=== PATIENT | male | born 1965 | race Caucasian/White ===

== ENCOUNTER 2017-06-23 12:38 | Emergency (ER) | payer OTHER, SELFPAY ==
[2017-06-23 12:44] VITALS: BP 149/82; PULSE 87; RESP 14; TEMP 36.2; O2SAT 100; BMI 19.9
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
== END 2017-06-23 14:42 | disposition home or self-care (01) ==
PROVIDERS: Emergency Provider Internal Medicine; Family Provider Specialist; PCP Specialist
DX: S29.011A Strain of muscle and tendon of front wall of thorax, initial encounter (principal); X58.XXXA Exposure to other specified factors, initial encounter
CPT/HCPCS: 99282

== ENCOUNTER 2018-07-12 10:35 | Emergency (ER) | payer OTHER, SELFPAY ==
[2018-07-12 10:44] VITALS: BP 122/64; PULSE 97; RESP 18; TEMP 37.2; O2SAT 98; BMI 19.3
--- NOTE | 2018-07-12 10:55 | ED.EXTPRO ---
HPI - Extremity Problem General Chief complaint: Extremity Problem,Nontraumatic Stated complaint: RT HAND SWELLING Time Seen by Provider: 07/12/18 10:54 Source: patient Mode of arrival: ambulatory Limitations: no limitations History of Present Illness HPI Narrative: 53-year-old gentleman comes emergency department with complaint of swelling of his right hand. Patient states he started noticing about 5:00 a.m. yesterday in the evening. Patient states that the swelling extended up to his fingers by tender 11:00 a.m. slightly into the fingers. He put an ice pack on it and went to bed. When he woke up this morning the swelling had decreased a little bit but is still present on the back of the hand. States not really tender. The skin feels a little bit tight. He can move his hand fully without any issues. He does not recall any trauma, no injuries. He states he has not had any cuts or scrapes. 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 Patient has been on some amoxicillin for about 3 days for a dental infection. He denies any numbness or tingling. He states he takes medication including amlodipine and lisinopril for hypertension. No atrial fibrillation. He did have any long distance travel, he has not fallen asleep on the arm for a extended amount of time. Patient quit smoking couple years ago. Denies illicit. They have cats at home but they are Trevizo and he does not interact with them. He denies any fevers or chills. No chest pain or shortness of breath or swelling in the rest of the arm. Related Data Home Medications Medication Instructions Recorded Confirmed amlodipine 5 mg PO DAILY 06/23/17 06/23/17 aspirin 81 mg PO DAILY 06/23/17 06/23/17 lisinopril 40 mg PO DAILY 06/23/17 06/23/17 Previous Rx's Medication Instructions Recorded clindamycin HCl 300 mg PO Q6H 5 Days #20 cap 07/12/18 Allergies Allergy/AdvReac Type Severity Reaction Status Date / Time No Known Drug Allergies Allergy Verified 06/23/17 12:48 Review of Systems Review of Systems ROS Unobtainable: All systems reviewed & are unremarkable except as noted in HPI and below Constitutional Denies chills, Denies fever(s), Denies malaise and Denies weakness Cardiovascular Denies chest pain and Denies dyspnea Respiratory Denies dyspnea Musculoskeletal Reports as per HPI, Denies limited range of motion, Denies muscle weakness, Denies numbness, Denies radiating pain into limb, Denies tingling and Reports other (Swelling dorsum of hand) Integumentary/Breasts Reports as per HPI, Denies non-healing lesions, Reports erythema, Reports skin swelling, Denies sores, Denies unusual bruising and Denies wounds Neurologic Denies numbness, Denies tingling, Denies paresthesias and Denies weakness [facility] Medical History HTN (hypertension) (Chronic) Lumbar disc disease (Chronic) 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 HEENT: Head normocephalic, atraumatic, EOMI, pupils reactive, face symmetric, moist mucous membranes NECK: Supple, full range of motion CARDIOVASCULAR: Regular rate and rhythm without murmurs, rubs or gallops. RESPIRATORY: Breath sounds equal bilaterally, no wheezes rales or rhonchi. ABDOMEN: Soft, nontender. Normoactive bowel sounds all 4 quadrants. No guarding or rebound, rigidity, no mass : No CVA tenderness EXTREMITIES: Normal range of motion, no clubbing. Patient has edema of the dorsum of the hand extending from just distal of the wrist up to in the medical carpal joint and the fingers. Patient has full range of motion, he is nontender to palpation throughout the entire hand and wrist. There is some mild erythema. It is mildly warm to touch. Patient has cap refill less than 2 seconds in all 5 fingers. He has 2+ radial pulse. He has normal sensation throughout. He has no swelling of his upper extremity. No bruising, no sores or wounds appreciated. Neurovascularly intact NEUROLOGICAL: Cranial nerves II through XII grossly intact. Moving all extremities SKIN: Warm, dry, no petechiae, no rashes or lesions except as noted above. Initial Vital Signs Initial Vital Signs: Vital Signs Temperature 98.9 F 07/12/18 10:44 Pulse Rate 97 H 07/12/18 10:44 Respiratory Rate 18 07/12/18 10:44 Blood Pressure 122/64 07/12/18 10:44 Pulse Oximetry 98 07/12/18 10:44 Course Orders Ordered: ED Orders 07/12/18 11:03 XR hand RT min 3V Stat Vital Signs - 8 hr 07/12/18 10:44 07/12/18 11:27 Temperature 98.9 F Pulse Rate 97 H 84 Respiratory Rate 18 18 Blood Pressure 122/64 119/71 Pulse Oximetry 98 99 MDM - Extremity (Nontraumatic) Imaging Data X-ray right hand: Radiologist's impression: [address] [address] XRay Report Signed Patient: Álvaro Smith LMR#: [id number] : 1965Acct:[id number] Age/Sex: 53 / MDate of Service: 07/12/18 Loc: ED Accession Number: [id number] Procedure: XR hand RT min 3V Ordering Provider: Elena Seth D.O. PROCEDURE: XR HAND RT MIN 3V INDICATIONS: swelling, redness hand, no trauma, minimal pain TECHNIQUE: 3 views of the hand(s) acquired. COMPARISON: None. FINDINGS: Bones: No fractures or dislocations. Carpal bones are normally aligned. No suspicious bony lesions. Mild degenerative changes of the basal joint of the thumb are noted. Additional areas of mild degenerative change involving the right hand are also present. Soft tissues: No suspicious soft tissue calcifications. No radiopaque foreign bodies are appreciated. Soft tissue swelling on the dorsal aspect of the hand is present. IMPRESSION: 1. No acute fractures of the right hand. 2. Mild degenerative changes of the right hand. 3. Soft tissue swelling along the dorsal aspect of the hand. Dictated by: John Lima M.D. on 07/12/2018 at 10:12 Approved by: John Lima M.D. on 07/12/2018 at 10:13 MDM Narrative Medical decision making narrative: X-ray does not show any gas, no fracture or other concerning changes for serious infection. Discussed with patient has been taking amoxicillin but he was on that before the symptoms started. I even though it is starting to improve per the patient I would go ahead and start him on a new antibiotic. Plan for clindamycin, patient is to return to the emergency department if worsening symptoms. Discharge Plan Departure Patient Disposition: Home Clinical Impression: Cellulitis of hand, right Discharge Date/Time: 07/12/18 11:28 Interventions: ED Discharge Assessment Last Done: 07/12/18 11:27 Instructions: DI for Cellulitis -- Adult Activity Restrictions/Additional Instructions: Follow-up with primary care or return for recheck in the next 3-5 days if you are having no improvement/resolution of symptoms. Take antibiotics until they are completely gone. Start them today. Return to the emergency department for fevers greater than 100.4 F, rapidly worsening swelling, redness that is spreading, new pain in your hand or extremity, new chest pain, shortness of breath, passing out, if you are unable to flexor straight your fingers, new weakness, numbness or other new or concerning symptoms. Prescriptions: New clindamycin HCl 300 mg capsule 300 mg PO Q6H 5 Days Qty: 20 RF: 0 No Action amlodipine 5 mg Tablet 5 mg PO DAILY RF: 0 aspirin 81 mg Tablet,Chewable 81 mg PO DAILY RF: 0 lisinopril 40 mg Tablet 40 mg PO DAILY RF: 0 Referrals: Rafael Sy MD [Primary Care Provider] - Stand Alone Forms: Work Release Note
--- NOTE | 2018-07-12 11:03 | DI.RAD.S_ITS ---
PROCEDURE: XR HAND RT MIN 3V INDICATIONS: swelling, redness hand, no trauma, minimal pain TECHNIQUE: 3 views of the hand(s) acquired. COMPARISON: None. FINDINGS: Bones: No fractures or dislocations. Carpal bones are normally aligned. No suspicious bony lesions. Mild degenerative changes of the basal joint of the thumb are noted. Additional areas of mild degenerative change involving the right hand are also present. Soft tissues: No suspicious soft tissue calcifications. No radiopaque foreign bodies are appreciated. Soft tissue swelling on the dorsal aspect of the hand is present. IMPRESSION: 1. No acute fractures of the right hand. 2. Mild degenerative changes of the right hand. 3. Soft tissue swelling along the dorsal aspect of the hand. Dictated by: John Lima M.D. on 07/12/2018 at 10:12 Approved by: John Lima M.D. on 07/12/2018 at 10:13
--- NOTE | 2018-07-12 11:10 | ED_ITS ---
HPI - Extremity Problem General Chief complaint: Extremity Problem,Nontraumatic Stated complaint: RT HAND SWELLING Time Seen by Provider: 07/12/18 10:54 Source: patient Mode of arrival: ambulatory Limitations: no limitations History of Present Illness HPI Narrative: 53-year-old gentleman comes emergency department with complaint of swelling of his right hand. Patient states he started noticing about 5:00 a.m. yesterday in the evening. Patient states that the swelling extended up to his fingers by tender 11:00 a.m. slightly into the fingers. He put an ice pack on it and went to bed. When he woke up this morning the swelling had decreased a little bit but is still present on the back of the hand. States not really tender. The skin feels a little bit tight. He can move his hand fully without any issues. He does not recall any trauma, no injuries. He states he has not had any cuts or scrapes. 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 Patient has been on some amoxicillin for about 3 days for a dental infection. He denies any numbness or tingling. He states he takes medication including amlodipine and lisinopril for hypertension. No atrial fibrillation. He did have any long distance travel, he has not fallen asleep on the arm for a extended amount of time. Patient quit smoking couple years ago. Denies illicit. They have cats at home but they are Trevizo and he does not interact with them. He denies any fevers or chills. No chest pain or shortness of breath or swelling in the rest of the arm. Related Data Home Medications Medication Instructions Recorded Confirmed amlodipine 5 mg PO DAILY 06/23/17 06/23/17 aspirin 81 mg PO DAILY 06/23/17 06/23/17 lisinopril 40 mg PO DAILY 06/23/17 06/23/17 Previous Rx's Medication Instructions Recorded clindamycin HCl 300 mg PO Q6H 5 Days #20 cap 07/12/18 Allergies Allergy/AdvReac Type Severity Reaction Status Date / Time No Known Drug Allergies Allergy Verified 06/23/17 12:48 Review of Systems Review of Systems ROS Unobtainable: All systems reviewed & are unremarkable except as noted in HPI and below Constitutional Denies chills, Denies fever(s), Denies malaise and Denies weakness Cardiovascular Denies chest pain and Denies dyspnea Respiratory Denies dyspnea Musculoskeletal Reports as per HPI, Denies limited range of motion, Denies muscle weakness, Denies numbness, Denies radiating pain into limb, Denies tingling and Reports other (Swelling dorsum of hand) Integumentary/Breasts Reports as per HPI, Denies non-healing lesions, Reports erythema, Reports skin swelling, Denies sores, Denies unusual bruising and Denies wounds Neurologic Denies numbness, Denies tingling, Denies paresthesias and Denies weakness [facility] Medical History HTN (hypertension) (Chronic) Lumbar disc disease (Chronic) 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 HEENT: Head normocephalic, atraumatic, EOMI, pupils reactive, face symmetric, moist mucous membranes NECK: Supple, full range of motion CARDIOVASCULAR: Regular rate and rhythm without murmurs, rubs or gallops. RESPIRATORY: Breath sounds equal bilaterally, no wheezes rales or rhonchi. ABDOMEN: Soft, nontender. Normoactive bowel sounds all 4 quadrants. No guarding or rebound, rigidity, no mass : No CVA tenderness EXTREMITIES: Normal range of motion, no clubbing. Patient has edema of the dorsum of the hand extending from just distal of the wrist up to in the medical carpal joint and the fingers. Patient has full range of motion, he is nontender to palpation throughout the entire hand and wrist. There is some mild erythema. It is mildly warm to touch. Patient has cap refill less than 2 seconds in all 5 fingers. He has 2+ radial pulse. He has normal sensation throughout. He has no swelling of his upper extremity. No bruising, no sores or wounds appreciated. Neurovascularly intact NEUROLOGICAL: Cranial nerves II through XII grossly intact. Moving all extremities SKIN: Warm, dry, no petechiae, no rashes or lesions except as noted above. Initial Vital Signs Initial Vital Signs: Vital Signs Temperature 98.9 F 07/12/18 10:44 Pulse Rate 97 H 07/12/18 10:44 Respiratory Rate 18 07/12/18 10:44 Blood Pressure 122/64 07/12/18 10:44 Pulse Oximetry 98 07/12/18 10:44 Course Orders Ordered: ED Orders 07/12/18 11:03 XR hand RT min 3V Stat Vital Signs - 8 hr 07/12/18 10:44 07/12/18 11:27 Temperature 98.9 F Pulse Rate 97 H 84 Respiratory Rate 18 18 Blood Pressure 122/64 119/71 Pulse Oximetry 98 99 MDM - Extremity (Nontraumatic) Imaging Data X-ray right hand: Radiologist's impression: [address] [address] XRay Report Signed Patient: Álvaro Smith LMR#: [id number] : 1965Acct:[id number] Age/Sex: 53 / MDate of Service: 07/12/18 Loc: ED Accession Number: [id number] Procedure: XR hand RT min 3V Ordering Provider: Elena Seth D.O. PROCEDURE: XR HAND RT MIN 3V INDICATIONS: swelling, redness hand, no trauma, minimal pain TECHNIQUE: 3 views of the hand(s) acquired. COMPARISON: None. FINDINGS: Bones: No fractures or dislocations. Carpal bones are normally aligned. No suspicious bony lesions. Mild degenerative changes of the basal joint of the thumb are noted. Additional areas of mild degenerative change involving the right hand are also present. Soft tissues: No suspicious soft tissue calcifications. No radiopaque foreign bodies are appreciated. Soft tissue swelling on the dorsal aspect of the hand is present. IMPRESSION: 1. No acute fractures of the right hand. 2. Mild degenerative changes of the right hand. 3. Soft tissue swelling along the dorsal aspect of the hand. Dictated by: John Lima M.D. on 07/12/2018 at 10:12 Approved by: John Lima M.D. on 07/12/2018 at 10:13 MDM Narrative Medical decision making narrative: X-ray does not show any gas, no fracture or other concerning changes for serious infection. Discussed with patient has been taking amoxicillin but he was on that before the symptoms started. I even though it is starting to improve per the patient I would go ahead and start him on a new antibiotic. Plan for clindamycin, patient is to return to the emergency department if worsening symptoms. Discharge Plan Departure Patient Disposition: Home Clinical Impression: Cellulitis of hand, right Discharge Date/Time: 07/12/18 11:28 Interventions: ED Discharge Assessment Last Done: 07/12/18 11:27 Instructions: DI for Cellulitis -- Adult Activity Restrictions/Additional Instructions: Follow-up with primary care or return for recheck in the next 3-5 days if you are having no improvement/resolution of symptoms. Take antibiotics until they are completely gone. Start them today. Return to the emergency department for fevers greater than 100.4 F, rapidly worsening swelling, redness that is spreading, new pain in your hand or extremity, new chest pain, shortness of breath, passing out, if you are unable to flexor straight your fingers, new weakness, numbness or other new or concerning symptoms. Prescriptions: New clindamycin HCl 300 mg capsule 300 mg PO Q6H 5 Days Qty: 20 RF: 0 No Action amlodipine 5 mg Tablet 5 mg PO DAILY RF: 0 aspirin 81 mg Tablet,Chewable 81 mg PO DAILY RF: 0 lisinopril 40 mg Tablet 40 mg PO DAILY RF: 0 Referrals: Rafael Sy MD [Primary Care Provider] - Stand Alone Forms: Work Release Note
[2018-07-12 11:27] VITALS: BP 119/71; PULSE 84; RESP 18; O2SAT 99
== END 2018-07-12 11:28 | disposition home or self-care (01) ==
LOC: ED 11:24
PROVIDERS: Emergency Provider Emergency Medicine; PCP Specialist
DX: L03.113 Cellulitis of right upper limb (principal)
CPT/HCPCS: 73130; 99282; 99283

== ENCOUNTER 2018-12-03 11:08 | Emergency (ER) | payer OTHER, SELFPAY ==
[2018-12-03 11:14] VITALS: BP 170/80; PULSE 74; RESP 15; TEMP 36.7; O2SAT 98
--- NOTE | 2018-12-03 11:22 | DI.RAD.S_ITS ---
PROCEDURE: XR CHEST 1V INDICATIONS: Eval for pneumonia TECHNIQUE: One view of the chest was acquired. COMPARISON: [facility], , CHEST 2 VIEW, 02/23/2013, 9:50. FINDINGS: Surgical changes and devices: None. Lungs and pleura: Lungs are clear. No pleural effusions or pneumothorax. Mediastinum: Mediastinal contours appear normal. Heart size is normal. Bones and chest wall: No suspicious bony lesions. Overlying soft tissues appear unremarkable. IMPRESSION: No acute cardiopulmonary pathology. Dictated by: Russel Carreon M.D. on 12/03/2018 at 11:41 Approved by: Russel Carreon M.D. on 12/03/2018 at 11:42
--- NOTE | 2018-12-03 11:26 | ED.GENADULT ---
HPI - General Adult General Chief complaint: Shortness of Breath/Dyspnea Stated complaint: difficulty breathing,raspy Time Seen by Provider: 12/03/18 11:22 Source: patient Mode of arrival: Ambulatory Limitations: no limitations History of Present Illness HPI narrative: 53-year-old male here for evaluation of chest congestion and also sinus congestion. He states that his symptoms started yesterday. Has been coughing. Has not tried anything for symptoms prior to arrival. No fevers. States that his nose has been congested over the past couple mornings. He feels like things to get better as the day goes on. No chest pain. Attempted to contact his primary provider but could get in to see him until the end of the month. Related Data Home Medications Medication Instructions Recorded Confirmed amlodipine 5 mg PO DAILY 06/23/17 12/03/18 aspirin 81 mg PO DAILY 06/23/17 06/23/17 lisinopril 40 mg PO DAILY 06/23/17 12/03/18 Previous Rx's Medication Instructions Recorded albuterol sulfate 2 puff INHALATION Q4-6H PRN #18 12/03/18 gram Allergies Allergy/AdvReac Type Severity Reaction Status Date / Time No Known Drug Allergies Allergy Verified 12/03/18 11:14 Review of Systems Constitutional Constitutional: Reports fatigue, Denies fever(s) and Denies headache(s) ENT Ears, Nose, Mouth, and Throat: Denies headache(s), Denies disequilibrium, Denies tinnitus, Denies sinus pain, Reports sinus pressure, Denies sore throat and Denies throat swelling Cardiovascular Cardiovascular: Denies chest pain, Denies dyspnea and Denies dyspnea on exertion Respiratory Respiratory: Reports chest congestion, Reports cough, Denies dyspnea and Denies dyspnea on exertion Gastrointestinal Gastrointestinal: Denies abdominal pain, Denies melena and Denies change in stool character Musculoskeletal Musculoskeletal: Denies myalgias and Denies arthralgias Integumentary/Breasts Skin/Breast: Denies lesions and Denies rash Neurologic Neurologic: Denies behavioral changes, Denies headache(s) and Denies disequilibrium Psychiatric Psychiatric: Denies behavioral changes Endocrine Endocrine: Reports fatigue Hematologic/Lymphatic Hematologic/Lymphatic: Denies easy bleeding and Denies easy bruising Allergic/Immunologic Allergic/Immunologic: Denies throat swelling Patient History Medical History HTN (hypertension) (Chronic) Lumbar disc disease (Chronic) 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) Sciatica (Resolved) Social History Smoking Status: Former smoker alcohol intake: current substance use type: marijuana alcohol intake frequency: 3 or more drinks per day Substance Use Type: does not use Exam Initial Vital Signs Initial Vital Signs: Vital Signs Temperature 98.1 F 12/03/18 11:14 Pulse Rate 74 12/03/18 11:14 Respiratory Rate 15 12/03/18 11:14 Blood Pressure 170/80 H 12/03/18 11:14 Pulse Oximetry 98 12/03/18 11:14 Const General: cooperative and comfortable Orientation: alert, awake and oriented x3 HENMT Head: normal to inspection and normocephalic Throat: posterior oropharynx normal Resp Effort & Inspection: normal respiratory effort Auscultation: clear to auscultation bilaterally Cardio Rate: regular rate Skin Lesions: no lesions Rashes: no rashes Neuro General: alert and awake Cognition: normal cognition Speech: speech normal Motor: muscle tone normal throughout Extrem General: normal to inspection and capillary refill normal Psych Appearance: grossly normal and well kempt Course Orders Ordered: ED Orders 12/03/18 11:22 XR chest 1V Stat EKG-12 Lead Stat Vital Signs Vital signs: Vital Signs - 8 hr 12/03/18 11:14 Temperature 98.1 F Pulse Rate 74 Respiratory Rate 15 Blood Pressure 170/80 H Pulse Oximetry 98 Medical Decision Making Imaging Data Chest x-ray: Radiologist's impression: [address] [address] XRay Report Signed Patient: Álvaro Smith LMR#: [id number] : 1965Acct:[id number] Age/Sex: 53 / MDate of Service: 12/03/18 Loc: ED Accession Number: [id number] Procedure: XR chest 1V Ordering Provider: Artie Jean D.O. PROCEDURE: XR CHEST 1V INDICATIONS: Eval for pneumonia TECHNIQUE: One view of the chest was acquired. COMPARISON: [facility], , CHEST 2 VIEW, 02/23/2013, 9:50. FINDINGS: Surgical changes and devices: None. Lungs and pleura: Lungs are clear. No pleural effusions or pneumothorax. Mediastinum: Mediastinal contours appear normal. Heart size is normal. Bones and chest wall: No suspicious bony lesions. Overlying soft tissues appear unremarkable. IMPRESSION: No acute cardiopulmonary pathology. Dictated by: Russel Carreon M.D. on 12/03/2018 at 11:41 Approved by: Russel Carreon M.D. on 12/03/2018 at 11:42 ECG Data Attestation: I personally reviewed and interpreted this ECG as follows: Prior ECG tracings: not available for review Interpretation: Sinus rhythm Normal axis Normal QRS Normal QTC No ST T wave changes MDM Narrative Medical decision making narrative: Chest x-ray is negative, no indication for antibiotics, patient is afebrile, low suspicion for flu. I do suspect that this is upper respiratory potentially bronchitis however has no abnormal lung findings. We did discuss the use of decongestants. Was sent home with albuterol as well. Patient was given return precautions and follow-up instructions. He expressed understanding and agreement plan. Discharge Plan Departure Patient Disposition: Home Clinical Impression: Chest congestion Upper respiratory infection Qualifiers: URI type: unspecified URI Qualified Code(s): J06.9 - Acute upper respiratory infection, unspecified Instructions: DI for Viral Upper Respiratory Infection -- Adult, Decongestant/Expectorant (By mouth) Activity Restrictions/Additional Instructions: I recommend that you start a antihistamine such as Claritin or Daisy or Zyrtec. You can buy the generic versions these medicines. You can use them as directed as needed. Also use the albuterol as needed as well and as directed. Contact your primary provider for follow-up. Prescriptions: New albuterol sulfate 90 mcg/actuation HFA aerosol inhaler 2 puff INHALATION Q4-6H PRN (Reason: shortness of breath or wheezing) Qty: 18 RF: 0 No Action amlodipine 5 mg Tablet 5 mg PO DAILY RF: 0 aspirin 81 mg Tablet,Chewable 81 mg PO DAILY RF: 0 lisinopril 40 mg Tablet 40 mg PO DAILY RF: 0 Referrals: Rafael Sy MD [Primary Care Provider] -
[2018-12-03 12:00] VITALS: BP 115/63; PULSE 93; RESP 13; O2SAT 98
== END 2018-12-03 12:22 | disposition home or self-care (01) ==
PROVIDERS: Emergency Provider Emergency Medicine; PCP Specialist
DX: R09.89 Other specified symptoms and signs involving the circulatory and respiratory systems (principal); J06.9 Acute upper respiratory infection, unspecified; R07.9 Chest pain, unspecified
CPT/HCPCS: 36415; 71045; 93005; 99282; 99284

== ENCOUNTER 2019-03-15 06:10 | Emergency (ER) | payer OTHER, SELFPAY ==
[2019-03-15 06:10] VITALS: BP 127/84; PULSE 94; RESP 18; TEMP 36.7; O2SAT 100; BMI 19.6
--- NOTE | 2019-03-15 06:27 | DI.RAD.S_ITS ---
PROCEDURE: XR ANKLE LT MIN 3V INDICATIONS: fall/injury TECHNIQUE: 3 views of the ankle were acquired. COMPARISON: None. FINDINGS: Bones: Fractures of the medial and lateral malleoli are noted. Ankle mortise is normally aligned. No suspicious bony lesions. Soft tissues: No tibiotalar joint effusion. Achilles tendon appears normal. Soft tissue swelling is noted ligamentous injury cannot be excluded. IMPRESSION: Lateral malleolus and medial malleolus fractures. Dictated by: Candida Waddell MD, PhD on 03/15/2019 at 7:26 Approved by: Candida Waddell MD, PhD on 03/15/2019 at 7:27
[2019-03-15] MEDS: IBUPROFEN 400 MG TABLET 800 MG PO (07:09)
--- NOTE | 2019-03-15 07:29 | DI.RAD.S_ITS ---
PROCEDURE: XR KNEE LT 1TO2V INDICATIONS: ankle fracture TECHNIQUE: 2 views of the knee were acquired. COMPARISON: None. FINDINGS: Bones: Mildly displaced fracture of the proximal fibula. Soft tissues: No joint effusion. No suspicious soft tissue calcifications. IMPRESSION: Proximal fibula fracture. Dictated by: Candida Waddell MD, PhD on 03/15/2019 at 8:23 Approved by: Candida Waddell MD, PhD on 03/15/2019 at 8:23
--- NOTE | 2019-03-15 07:36 | ED.LOWEXIN ---
HPI - Extremity Injury (Lower) General Chief Complaint: Extremity Injury, Lower Stated Complaint: left ankle injury stepped in hole Time Seen by Provider: 03/15/19 07:00 Source: patient Mode of arrival: Wheelchair Limitations: physical limitation History of Present Illness HPI Narrative: Patient is a 53-year-old male who presents with left ankle pain. He says his he injured it last night after the [place]. He admits to being intoxicated at that time he was ambulatory afterwards. However this morning he has significant swelling. Denies any numbness or tingling. Related Data Home Medications Medication Instructions Recorded Confirmed amlodipine 5 mg PO DAILY 06/23/17 12/03/18 aspirin 81 mg PO DAILY 06/23/17 06/23/17 lisinopril 40 mg PO DAILY 06/23/17 12/03/18 Previous Rx's Medication Instructions Recorded albuterol sulfate 2 puff INHALATION Q4-6H PRN #18 12/03/18 gram hydrocodone-acetaminophen [Greenwood] 1 tab PO Q6H PRN #10 tab 03/15/19 Allergies Allergy/AdvReac Type Severity Reaction Status Date / Time No Known Drug Allergies Allergy Verified 03/15/19 06:52 Review of Systems Review of Systems Narrative: GENERAL: Denies chills,fever HEENT: Denies throat pain RESPIRATORY: Denies dyspnea, cough, wheezing CARDIOVASCULAR: Denies chest pain, palpitations GASTROINTESTINAL: Denies nausea, vomiting MUSCULOSKELETAL: See HPI SKIN: No rash, no laceration, no pruritus NEUROLOGIC: Denies weakness, dizziness, headache, numbness 8 point review of systems is negative except for those stated above and HPI Patient History Medical History HTN (hypertension) (Chronic) Lumbar disc disease (Chronic) 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) Sciatica (Resolved) Surgical History H/O lumbar discectomy (Resolved) Family History Father Coronary artery disease Social History Smoking Status: Former smoker alcohol intake: current substance use type: marijuana Smoking Status: Former smoker alcohol intake frequency: 0-2 drinks per day Substance Use Type: marijuana Exam Initial Vital Signs Initial Vital Signs: Vital Signs Temperature 98.0 F 03/15/19 06:10 Pulse Rate 94 H 03/15/19 06:10 Respiratory Rate 18 03/15/19 06:10 Blood Pressure 127/84 03/15/19 06:10 Pulse Oximetry 100 03/15/19 06:10 GENERAL: Well-appearing, well-nourished and in no acute distress. HEENT: Head atraumatic,EOMI, pupils reactive CARDIOVASCULAR: Regular rate and rhythm without murmurs, rubs or gallops. RESPIRATORY: Breath sounds equal bilaterally, no wheezes rales or rhonchi. ABDOMEN: Soft, nontender. Normoactive bowel sounds all 4 quadrants. No guarding or rebound. EXTREMITIES: Normal range of motion, no clubbing or edema. Neurovascularly intact. Left bilateral malleoli swelling a distal pedal pulse is strong knee is stable nontender minimal swelling able to flex and extend NEUROLOGICAL: Alert and oriented x4.Normal gait and speech. SKIN: Warm, dry, no laceration, no petechiae, no rashes or lesions. Procedures Orthopedic Splinting/Casting Injury #1: Side: left Lower Extremity Injury Location: lower leg Lower Extremity Immobilizer: posterior splint and stirrup splint Other Orthopedic Equipment: crutches Post splinting neuro exam: intact Post splinting vascular exam: intact Placed by: Nursing Course Orders Ordered: ED Orders 03/15/19 06:27 XR ankle LT min 3V Stat 03/15/19 07:29 XR knee LT 1to2V Stat Discontinued Medications Hydrocodone Bitart/Acetaminophen (Greenwood 5/325) 1 tab PO NOW ONE Stop: 03/15/19 07:29 Last Admin: 03/15/19 08:05 Dose: 1 tab Documented by: SAMIR Ibuprofen (Advil) 800 mg PO NOW ONE Stop: 03/15/19 06:51 Last Admin: 03/15/19 07:09 Dose: 800 mg Documented by: SUZANNE Vital Signs Vital signs: Vital Signs - 8 hr 03/15/19 06:10 03/15/19 09:05 Temperature 98.0 F Pulse Rate 94 H 80 Respiratory Rate 18 16 Blood Pressure 127/84 123/70 Pulse Oximetry 100 100 Discharge Plan Departure Patient Disposition: Home Clinical Impression: Ankle fracture, left Qualifiers: Encounter type: initial encounter Fracture type: closed Qualified Code(s): S82.892A - Other fracture of left lower leg, initial encounter for closed fracture Discharge Date/Time: 03/15/19 09:05 Instructions: Ankle Fracture Activity Restrictions/Additional Instructions: *You have been diagnosed with left ankle fracture *What to do: Keep splint on at all times, he will likely need surgery. Do not weightbear use crutches. May elevate and ice. *Continue to take medications as directed Greenwood 1 tablet every 6 hours if needed for severe pain sent to [facility] in [place] *Follow up with your primary care provider in 2-3 days, call orthopedic office today to schedule follow-up appointment *Return to ER if you should have increasing pain weakness numbness tingling or any new, worsening or concerning symptoms CONTROLLED SUBSTANCE DISCHARGE (Narcotoic/benzodiazepine/Flexeril/Phenergan) 1. You have been prescribed narcotic medications, it does have acetaminophen/Tylenol/paracetamol in it so do not take extra Tylenol or Tylenol containing products TRAMADOL DOES NOT CONTAIN TYLENOL 2. Please understand that we cannot provide further refills of narcotics, benzodiazepines or controlled substances through the ED and her pain management will need to be through your provider. 3. While on these medications you cannot drive or operate heavy machinery. 4. You cannot sign legal documents or perform any duties such as this. 5. As long as you're taking opiate pain medications he should also be taking a stool softener such as Colace, Dulcolax, MiraLAX or prune juice, to help avoid constipation. Prescriptions: New hydrocodone-acetaminophen [Greenwood] 5-325 mg tablet 1 tab PO Q6H PRN (Reason: pain) Qty: 10 RF: 0 No Action amlodipine 5 mg Tablet 5 mg PO DAILY RF: 0 aspirin 81 mg Tablet,Chewable 81 mg PO DAILY RF: 0 lisinopril 40 mg Tablet 40 mg PO DAILY RF: 0 albuterol sulfate 90 mcg/actuation HFA aerosol inhaler 2 puff INHALATION Q4-6H PRN (Reason: shortness of breath or wheezing) Qty: 18 RF: 0 Referrals: [facility] [Provider Group] Rafael Sy MD [Primary Care Provider] -
[2019-03-15] MEDS: HYDROCODONE/ACET 5/325 TABLET 1 TAB PO (08:05)
[2019-03-15 09:05] VITALS: BP 123/70; PULSE 80; RESP 16; O2SAT 100
== END 2019-03-15 09:05 | disposition home or self-care (01) ==
PROVIDERS: Emergency Provider Emergency Medicine; PCP Specialist
DX: S82.892A Other fracture of left lower leg, initial encounter for closed fracture (principal); X58.XXXA Exposure to other specified factors, initial encounter
CPT/HCPCS: 29505; 73560; 73610; 99283; 99284

== ENCOUNTER 2019-03-19 12:59 | Day surgery (SDC) | payer OTHER, SELFPAY ==
[2019-03-18 11:41] VITALS: BMI 19.6
[2019-03-19] VITALS (10 sets, daily range): BP systolic 110–155; BP diastolic 68–95; PULSE 77–96; RESP 8–20; TEMP 36.4–36.9; O2SAT 95–100; BMI 19.6
--- NOTE | 2019-03-19 | DI.RAD.S_ITS ---
PROCEDURE: XR ANKLE LT MIN 3V INDICATIONS: ANKLE FRACTURE BIMALLEOLAR COMPARISON: [facility], CR, XR ANKLE LT MIN 3V, 03/15/2019, 6:32. FINDINGS: 2 limited intraoperative fluoroscopically stored images of the left ankle were obtained for intraoperative hardware localization purposes. These images are not meant for diagnostic purposes. Intraoperative findings related to a bimalleolar left ankle ORIF are present. IMPRESSION: Intraoperative images obtained are in the patient's left ankle open reduction and internal fixation procedure. Dictated by: John Lima M.D. on 03/20/2019 at 8:06 Approved by: John Lima M.D. on 03/20/2019 at 8:07
[2019-03-19] MEDS: LACTATED RINGERS 1,000 ML 100 ML IV (13:31)
--- NOTE | 2019-03-19 15:46 | PM.PREOP ---
Pre-operative Note Interval Note History & Physical reviewed/Exam performed by Physician: Yes Changes to H&P: No
[2019-03-19] MEDS: MIDAZOLAM 2 MG/2 ML VIAL IV (16:00)
[2019-03-19] MEDS: fentaNYL 100 MCG/2 ML INJ 50 MCG IV (16:02)
--- NOTE | 2019-03-19 16:23 | SUR.PREOP ---
Block start time [1600] . Monitoring initiated and maintained throughout procedure. Oxygen and medications given per anesthesiologist instructions. Patient remained stable throughout procedure, no adverse reactions noted. Block end time [1606].Dr unable to print strip from vital sign monitoe=r or ultrasound as both printyers were not functioning / offline. pt in NS rythm per observation pre , during and post procedure. see VS
[2019-03-19] MEDS: CEFAZOLIN 2 GM/100 ML FROZ.PIGGY IV (16:32)
--- NOTE | 2019-03-19 16:48 | SUR.OPER ---
Supine on padded OR bed, head on pillow, arms secured on padded arm boards at <90 degrees abduction, bump under left hip, legs uncrossed, left leg is under control of surgeon, safety belt at thigh, tape over blanket over right lower leg.
[2019-03-19] MEDS: BUPIVACAINE 0.25% W/ EPI 30 ML VIAL INJ (17:01)
--- NOTE | 2019-03-19 18:53 | SUR.PHASEI ---
stable pacu stay, awake eating crackers.
--- NOTE | 2019-03-19 19:12 | P.OP_ITS ---
Operative Date/Time/Diagnoses Date of procedure: 03/19/19 Time of procedure: 17:00 Pre-op diagnosis: Left ankle bimalleolar ankle fracture, displaced Left ankle syndesmotic disruption Post-op diagnosis: same Procedure & Clinicians Procedure: Open reduction internal fixation bimalleolar ankle fracture left 33252 Open reduction internal fixation syndesmosis left [id number] Same procedure as scheduled: Yes Indications: The patient is a 53-year-old male with a left displaced bimalleolar ankle fracture with syndesmotic disruption. He has been indicated for operative fixation to restore alignment reduce the risk of posttraumatic arthritis and dysfunction. The risks and benefits of the procedure have been discussed with the patient even opportunity to ask questions. The risks of surgery include but are not limited to infection, malunion, nonunion, persistence of pain, damage to nerves and blood vessels, posttraumatic arthritis, DVT, PE, cardiopulmonary complications and . The patient expressed a thorough understanding of the risks and benefits of surgery and has elected to proceed. Consent was signed in the office. Ancef 2 g preop antibiotic. Will use baby aspirin for DVT prophylaxis. Surgeon: Ena Álvarez Clinical Specialist: Justen Gibbs Anesthesia Type: General and Peripheral nerve block Operative Notes Findings: Displaced lateral malleolus fracture with comminuted separate fragment at the distal syndesmosis involving a separate butterfly fragment of the distal fibula at the level of the joint this was pinned in place and then stabilized with a 7 hole 1/3 tubular plate from [employer] with nonlocking and locking screws. The lateral joint was inspected no obvious cartilage lesions were identified. Of note the patient's distal fibula was softer bone than typical and required the use of locking screws. The syndesmosis was grossly unstable. This was open reduced with thumb pressure and pinned and fixed with a 3.5 tricortical syndesmotic screw. The medial malleolus was open reduced. There was periosteum enfolded in the fracture site. This was removed. Again the medial aspect of the joint was inspected no cartilage defect was noted. This was then reduced and stabilized with 2x 4.0 cannulated lag screws from the [employer] set Closure Type: primary Specimen(s): none sent Prosthetic devices, grafts, tissues, transplants, or devices: [employer] 1/3 tubular plate, 7 holes with nonlocking and locking screws 3.5 cortical syndesmotic screw 4.0 cannulated screws x2 medial malleolus fracture 44 and 40 mmm Estimated Blood Loss (mL): 20 Blood products transfused: none Tourniquet time (min): 67 Procedure in detail: Operative findings: An unstable distal fibula fracture was encountered. This was stabilized with a [employer] 1/3 tubular plate. A 3.5 inter frag lag screw was also utilized. Medial malleolus was stabilized with 2x 4.0 cannulated screws. The syndesmosis was then stressed under direct visualization and found to be unstable. This was reduced with thumb pressure then pinned and stabilized with a 3.5 cortical screw. This was then retested under manual pressure and external rotation stress under fluoroscopic guidance and was stable after fixation. Procedure in detail: In the preoperative holding area, the appropriate limb and sites were marked, consent was again reviewed with the patient and all questions answered. The patient was brought to the operating room, placed on the operating table and given anesthetic. Following successful levels of anesthesia, the patient was appropriately padded, position secured to the table. An SCD was placed on the contralateral leg. All bony prominences were well padded. A well- padded thigh tourniquet was placed. The surgical leg was then prepped and draped in the usual sterile fashion. A formal time-out procedure was completed confirming the patient, site and side of surgery and administration of appropriate preoperative antibiotics. All were in agreement. An Esmarch bandage was utilized to exsanguinate the limb and the tourniquet was raised on the thigh to 250 mmHg and was let down at the end of the case at 67 minutes prior to closure. Lateral incision was made over the fibula. Dissection was carried through the skin and subcutaneous tissue to the level of the fibula. The fracture was exposed and cleaned of debris. There was a separate comminuted butterfly fragment at the level of the joint. This was reduced and carefully pinned in place. Fracture was reduced, restoring length rotation and anatomic alignment. This was stabilized with 3.5 lag screw. Next a 7 hole 1/3 tubular locking neutralization plate was placed and secured in standard fashion. The lateral talar dome was inspected through the fracture site no cartilage defect was found. The syndesmosis this was also exposed and grossly open on direct visualization. Medial malleolus fixation: Attention was then turned to the medial side of the joint. A standard medial approach to the medial malleolus as it. The periosteum was reflected at the fracture site and this was cleaned and reduced with a pointed reduction clamp. Two parallel K-wires were then placed and alignment checked on x-ray to confirm adequate position. The wires were then sequentially overdrilled and2 x 4.0mm cannulated screws were placed. The reduction was stable. These were 44 and 40 mm Syndesmosis stabilization: Attention was then turned to the syndesmosis. The syndesmosis was still grossly unstable on open visualization and stress testing. This was then reduced with thumb pressure and pinned and stabilized with 1 tricortical 3.5 mm syndesmotic screw. Stability was confirmed under fluoro. The wounds were irrigated. We were quite satisfied with result clinically and radiographically. The tourniquet was released, and hemostasis achieved. The deep tissue was closed with 2 O Vicryl. Subcutaneous tissue was closed with 4 0 Monocryl in the skin with 3 O nylon. A sterile bulky dressing and knee splint were applied. All counts were correct. The patient was then awoken and transported to recovery room in good condition. There no known immediate complications from this procedure. Complications: none Post-operative Condition: stable Disposition: PACU Plan for aftercare: Nonweightbearing left lower extremity x6 weeks followed by progressive weight-bearing. Elevate above the heart level. Follow-up in 2 weeks for suture removal.
--- NOTE | 2019-03-19 19:20 | SUR.PHASEII ---
Pt anxious to go , stated he was hungry and wanted to get real food. Ate more crackers and had more juice. Dressed when ready left when ready and left in stable condition.
== END 2019-03-19 19:26 | disposition home or self-care (01) ==
LOC: OR 12:59
PROVIDERS: PCP Specialist; Referring Provider Orthopaedic Surgery Foot and Ankle Surgery; Visit Provider Orthopaedic Surgery Foot and Ankle Surgery
PROC: (CPT 27814; principal; 2019-03-19 15:30)
DX: S82.842A Displaced bimalleolar fracture of left lower leg, initial encounter for closed fracture (principal); S93.432A Sprain of tibiofibular ligament of left ankle, initial encounter; W19.XXXA Unspecified fall, initial encounter
CPT/HCPCS: 27814; 27829; 64450; 73610; 76000; J0690; J1100; J2250; J2405; J2704; J3010

== ENCOUNTER → 2019-06-24 09:45 | Outpatient (CLI) | payer OTHER, SELFPAY ==
--- NOTE | 2019-06-24 | DI.US.S_ITS ---
PROCEDURE: US PERIPH VENOUS LOW EXTREM LT INDICATIONS: RULE OUT DVT TECHNIQUE: Real-time imaging, as well as color and pulse Doppler interrogation, were performed of the lower extremity deep veins from the inguinal ligament to the popliteal fossa. COMPARISON: None. FINDINGS: The common femoral, femoral and popliteal veins are normally compressible, and free of intraluminal thrombus. Color and pulse Doppler demonstrate normal phasic intraluminal flow. There is normal augmentation response to distal compression maneuver. A small inguinal lymph node is incidentally noted. Subcutaneous edema of the left lower leg is present. IMPRESSION: No evidence of deep vein thrombosis of the left lower extremity. Dictated by: John Lima M.D. on 06/24/2019 at 9:50 Approved by: John Lima M.D. on 06/24/2019 at 9:58
== END ==
PROVIDERS: PCP Family Medicine; Referring Provider Orthopaedic Surgery Foot and Ankle Surgery; Visit Provider Orthopaedic Surgery Foot and Ankle Surgery
DX: S82.842A Displaced bimalleolar fracture of left lower leg, initial encounter for closed fracture (principal); R22.42 Localized swelling, mass and lump, left lower limb
CPT/HCPCS: 93971

== ENCOUNTER → 2019-07-29 10:59 | Outpatient (CLI) | payer OTHER, SELFPAY ==
--- NOTE | 2019-07-29 | DI.US.S_ITS ---
PROCEDURE: US PERIP VENOUS LOW EXTREM LT INDICATIONS: PAIN IN UNSPECIFIED JOINT TECHNIQUE: Real-time imaging, as well as color and pulse Doppler interrogation, were performed of the lower extremity deep veins from the inguinal ligament to the popliteal fossa. COMPARISON: [facility], [facility] VENOUS LOW EXTREM LT, 06/24/2019, 10:12. FINDINGS: The common femoral, femoral and popliteal veins are normally compressible, and free of intraluminal thrombus. Color and pulse Doppler demonstrate normal phasic intraluminal flow. There is normal augmentation response to distal compression maneuver. 8 mm morphologically normal appearing left groin lymph node unchanged. Edema within the lower leg. IMPRESSION: 1. No deep venous thrombosis identified within the left lower extremity. 2. No change in 8mm morphologically normal appearing left groin lymph node. Dictated by: Cristhian Crow [facility] Interpreted: Candida Waddell MD on 07/29/2019 at 12:44 Approved by: Candida Waddell MD, PhD on 07/29/2019 at 13:40
== END ==
PROVIDERS: PCP Family Medicine; Referring Provider Orthopaedic Surgery Foot and Ankle Surgery; Visit Provider Orthopaedic Surgery Foot and Ankle Surgery
DX: R60.0 Localized edema (principal); M25.50 Pain in unspecified joint
CPT/HCPCS: 93971

== ENCOUNTER 2020-07-24 10:33 | Emergency (ER) | payer OTHER, SELFPAY ==
[2020-07-24 11:03] VITALS: BP 178/80; PULSE 87; RESP 18; TEMP 36.4; O2SAT 99; BMI 19.9
--- NOTE | 2020-07-24 11:08 | DI.RAD.S_ITS ---
PROCEDURE: XR SHOULDER RT MIN 2V INDICATIONS: fall,right shoulder pain. difficulty lifting. TECHNIQUE: 3 views of the shoulder were acquired. COMPARISON: [facility], CR, XR CHEST 1V, 12/03/2018, 11:32. FINDINGS: Bones: No fractures or dislocations. No suspicious bony lesions. Visualized ribs appear intact. Soft tissues: No suspicious soft tissue calcifications. IMPRESSION: Unremarkable right shoulder radiographs Dictated by: Can Gonzalez M.D. on 07/24/2020 at 10:35 Approved by: Can Gonzalez M.D. on 07/24/2020 at 10:41
--- NOTE | 2020-07-24 14:24 | ED.UPPEXIN ---
HPI - Extremity Injury (Upper) General Chief Complaint: Extremity Injury, Upper Stated Complaint: cant right arm/ shoulder Time Seen by Provider: 07/24/20 14:24 Source: patient Mode of arrival: Ambulatory Limitations: no limitations History of Present Illness HPI narrative: 55-year-old male former smoker with noncontributory medical history presents with significant other and a chief complaint of a right shoulder injury late last night. He is in a new apartment and was walking in the dark when he caught his foot on something on the ground and fell forward onto his right shoulder. He denies any head neck or back injury nor any other pain. He states he went to bed feeling okay but upon waking he has had increasing pain in his shoulder. He denies any numbness, tingling or weakness. He has increased pain with motion and improvement with rest MD complaint: injury to: right and shoulder Onset (ago): hour(s) Other injuries: none Handedness: right Place: home Severity: moderate Relieving factors: rest Exacerbating factors: movement of extremity Context: fall and direct blow Associated symptoms: denies other symptoms Related Data Home Medications Medication Instructions Recorded Confirmed amlodipine 5 mg PO DAILY 06/23/17 03/18/19 lisinopril 40 mg PO DAILY 06/23/17 03/18/19 ibuprofen 400 mg PO PRN PRN 03/19/19 03/19/19 Previous Rx's Medication Instructions Recorded oxycodone 5 mg PO Q4H PRN #60 tab 03/19/19 ibuprofen 600 mg PO TID-QID PRN #20 tab 07/24/20 Allergies Allergy/AdvReac Type Severity Reaction Status Date / Time No Known Drug Allergies Allergy Verified 03/19/19 13:40 Review of Systems Constitutional Constitutional: Denies chills, Denies fatigue, Denies fever(s), Denies frequent falls, Denies lethargy and Denies weakness Eyes Eyes: Denies change in vision, Denies eye discharge, Denies irritation and Denies loss of vision ENT Ears, Nose, Mouth, and Throat: Denies change in voice, Denies dizziness, Denies neck pain, Denies sore throat and Denies throat swelling Cardiovascular Cardiovascular: Denies chest pain, Denies irregular heart rhythm, Denies lightheadedness, Denies palpitations, Denies dyspnea, Denies dyspnea on exertion and Denies orthopnea Respiratory Respiratory: Denies cough, Denies dyspnea, Denies dyspnea on exertion and Denies wheezing Gastrointestinal Gastrointestinal: Denies abdominal pain, Denies change in bowel habits, Denies diarrhea, Denies nausea and Denies vomiting Musculoskeletal Musculoskeletal: Reports arthralgias, Reports limited range of motion, Denies neck pain and Denies numbness Integumentary/Breasts Skin/Breast: Denies pruritus, Denies erythema, Denies rash and Denies wounds Neurologic Neurologic: Denies behavioral changes, Denies confusion, Denies dizziness, Denies frequent falls, Denies loss of vision, Denies numbness and Denies weakness Psychiatric Psychiatric: Denies anxiety, Denies behavioral changes, Denies confusion, Denies depression, Denies homicidal ideation and Denies suicidal ideation Endocrine Endocrine: Denies fatigue, Denies flushing and Denies palpitations Hematologic/Lymphatic Hematologic/Lymphatic: Denies easy bruising Allergic/Immunologic Allergic/Immunologic: Denies urticaria, Denies throat swelling and Denies wheezing Patient History Medical History (Updated 07/24/20 @ 14:32 by Sandeep Medeiros DO) Anemia Ankle fracture, left (03/14/19) Cardiomegaly Chronic back pain Colitis HTN (hypertension) Hyponatremia Lumbar disc disease Osteomyelitis of cervical spine (~2012) Palpitations Pancreas hemorrhage Pancreatic tumor (~2009) Sciatica Surgical History (Updated 03/18/19 @ 11:55 by Betzy Lazar RN) Hx of microdiscectomy (01/08/17) Family History Father Coronary artery disease Social History household members: spouse Smoking Status: Former smoker alcohol intake: current substance use type: marijuana Smoking Status: Former smoker alcohol intake frequency: 0-2 drinks per day Substance Use Type: marijuana Exam Narrative Exam Narrative: GEN: AOx3 and in mild distress EYES: Pupils are equal, round, and reactive to light and accommodation. Extraoccular muscles are intact bilaterally. There is no subconjunctival hemorrhage or exudate. CHEST: Lungs are clear to auscultation bilaterally and free of wheezes, rales, or rhonchi. Heart rate is regular rhythm, there are no murmurs, clicks, rubs, or gallops. There is no chest wall tenderness. ABD: Abdomen is soft and nontender. There is no guarding or rebound. Bowel sounds are normal in all 4 quadrants. There is no mass or organomegaly. EXT: Full but painful range of motion of the right shoulder, in particular the anterior part of the shoulder. He has full strength though it is painful. This is closed, isolated and neurovascularly intact. No obvious deformity. SKIN: Warm, pink, and dry. No erythema or rash Initial Vital Signs Initial Vital Signs: Vital Signs Temperature 97.6 F 07/24/20 11:03 Pulse Rate 87 07/24/20 11:03 Respiratory Rate 18 07/24/20 11:03 Blood Pressure 178/80 H 07/24/20 11:03 Pulse Oximetry 99 07/24/20 11:03 Procedures Orthopedic Splinting/Casting Injury #1: Side: right Upper Extremity Injury Location: shoulder Upper Extremity Immobilizer: sling/shoulder immobilizer Post splinting neuro exam: intact Post splinting vascular exam: intact Placed by: Nursing Course Orders Ordered: ED Orders 07/24/20 11:08 XR shoulder RT min 2V Stat Vital Signs Vital signs: Vital Signs - 8 hr 07/24/20 11:03 07/24/20 14:29 Temperature 97.6 F 98.4 F Pulse Rate 87 75 Respiratory Rate 18 16 Blood Pressure 178/80 H 175/80 H Pulse Oximetry 99 100 MDM - Extremity Injury (Upper) Imaging Data Extremity x-ray #1: Radiologist's Impression: Álvaro Smith 55 M [address] [id number] ReportSigned Patient: Álvaro Smith LMR#: [id number]: [id number]:[id number]/Sex: 55 / MDate of Service: 07/24/20Loc: EDAccession Number: [id number] Procedure: XR shoulder RT min 2V Ordering Provider: Elena Seth D.O. PROCEDURE: XR SHOULDER RT MIN 2V INDICATIONS: fall,right shoulder pain. difficulty lifting. TECHNIQUE: 3 views of the shoulder were acquired. COMPARISON: [facility], CR, XR CHEST 1V, 12/03/2018, 11:32. FINDINGS: Bones: No fractures or dislocations. No suspicious bony lesions. Visualized ribs appear intact. Soft tissues: No suspicious soft tissue calcifications. IMPRESSION: Unremarkable right shoulder radiographs Dictated by: Can Gonzalez M.D. on 07/24/2020 at 10:35 Approved by: Can Gonzalez M.D. on 07/24/2020 at 10:41 Discharge Plan Departure Patient Disposition: Home Clinical Impression: Sprain of right shoulder Qualifiers: Encounter type: initial encounter Shoulder sprain type: unspecified sprain Qualified Code(s): S43.401A - Unspecified sprain of right shoulder joint, initial encounter Instructions: DI for Shoulder Sprain Activity Restrictions/Additional Instructions: *You have been diagnosed with [fall with right shoulder pain, x-ray and exam are consistent with soft tissue injury. No fracture or dislocation suspected] *What to do: *Please continue to take your regular medications as directed. [x ] New medication prescriptions sent to your pharmacy: [ [facility]] [ ] New medication written as a paper prescription [ ] No new medications given *Please follow up with your primary care provider in 2-3 days, call for an appointment. Let them know you were seen in the Emergency Department and that we ask that you be seen in follow up. We will electronically transmit a record of today's note if your PCP is in our system *If you do not have a primary care provider please contact the [facility] Resource line at [phone]. They will ask some questions about your medical history and help get you set up with a doctor in the community. *Return to Emergency Department if you should have any new, worsening or concerning symptoms, such as [fever greater than 101 F, shaking chills, worsening pain, persistent vomiting or other bothersome symptoms] Prescriptions: New ibuprofen 600 mg tablet 600 mg PO TID-QID PRN (Reason: pain) Qty: 20 RF: 0 No Action amlodipine 5 mg Tablet 5 mg PO DAILY RF: 0 lisinopril 40 mg Tablet 40 mg PO DAILY RF: 0 oxycodone 5 mg tablet 5 mg PO Q4H PRN (Reason: pain) Qty: 60 RF: 0 ibuprofen 200 mg Tablet 400 mg PO PRN PRN (Reason: Pain (Scale Score 1-3)) RF: 0 Referrals: Artie Avitia MD [Primary Care Provider] - Stand Alone Forms: Work Release Note
[2020-07-24 14:29] VITALS: BP 175/80; PULSE 75; RESP 16; TEMP 36.9; O2SAT 100
[2020-07-24 14:33] VITALS: PULSE 78
== END 2020-07-24 14:45 | disposition home or self-care (01) ==
PROVIDERS: Emergency Provider Emergency Medicine; PCP Family Medicine
DX: S43.401A Unspecified sprain of right shoulder joint, initial encounter (principal); W19.XXXA Unspecified fall, initial encounter
CPT/HCPCS: 73030; 99283

== ENCOUNTER → 2024-06-17 08:20 | Outpatient (CLI) | payer OTHER, SELFPAY ==
--- NOTE | 2024-06-17 | DI.US.S_ITS ---
PROCEDURE: US ARTERIAL DUPLEX UE RT INDICATIONS: WEAKNESS TECHNIQUE: Color and pulse Doppler interrogation was performed of right upper extremity arterial systems, with image documentation. COMPARISON: None. FINDINGS: Right upper extremity: Subclavian artery (proximal): 74 cm/sec, with biphasic flow. Subclavian artery (mid): 342 cm/sec, with monophasic flow. Subclavian artery (distal): 52 cm/sec, with monophasic flow. Axillary artery: 52 cm/sec, with biphasic flow. Brachial artery (proximal): 47 cm/sec, with biphasic flow. Brachial artery (mid): 57 cm/sec, with triphasic flow. Brachial artery (distal): 30 cm/sec, with biphasic flow. Radial artery (proximal): 37 cm/sec, with triphasic flow. Radial artery (mid): 36 cm/sec, with triphasic flow. Radial artery (distal): 25 cm/sec, with monophasic flow. Ulnar artery (proximal): 36 cm/sec, with triphasic flow. Ulnar artery (mid): 38 cm/sec. with biphasic flow. Ulnar artery (distal): 22 cm/sec, with biphasic flow. Lopez-scale imaging description: Extensive atherosclerotic plaque, most prominent in the subclavian artery. IMPRESSION: Greater than 50% stenosis of the right mid subclavian artery by peak systolic velocity criteria. Dictated by: Ralph Malone M.D. on 06/23/2024 at 15:39 Approved by: Ralph Malone M.D. on 06/23/2024 at 15:40
--- NOTE | 2024-06-17 | DI.US.S_ITS ---
PROCEDURE: US CAROTID DOPPLER BI INDICATIONS: BLOOD PRESSURE 30 POINTS DIFFERENT BETWEEN ARMS TECHNIQUE: Color and pulse Doppler interrogation was performed of both carotid systems, with image documentation and velocity measurements. COMPARISON: None. FINDINGS: Stenosis calculations are based on SRU (Society of Radiologists in Ultrasound) criteria. Right side: Brachial blood pressure: 123/76 mm Hg. Common carotid artery peak systolic velocity: 75 cm/sec. Internal carotid artery peak systolic velocity: 136 cm/sec. Internal carotid artery end diastolic velocity: 36 cm/sec. External carotid artery peak systolic velocity: 168 cm/sec. ICA/CCA peak systolic ratio: 1.8. Lopez scale imaging description: Moderate amount of atherosclerotic plaques are noted in distal right carotid bulb and proximal right internal carotid artery. Percent internal carotid artery stenosis: 50-69% Vertebral artery: Flow direction is antegrade. Left side: Brachial blood pressure: 137/72 mm Hg. Common carotid artery peak systolic velocity: 83 cm/sec. Internal carotid artery peak systolic velocity: 118 cm/sec. Internal carotid artery end diastolic velocity: 29 cm/sec. External carotid artery peak systolic velocity: 149 cm/sec. ICA/CCA peak systolic ratio: 1.4. Lopez scale imaging description: [id number] calcified plaques are noted in distal left carotid bulb and proximal left internal carotid artery. Percent internal carotid artery stenosis: Less than 50%. Vertebral artery: Flow direction is antegrade. IMPRESSION: 1. In the right carotid artery, there is 50-69% stenosis based on peak systolic velocity criteria. 2. In the left carotid artery, there is less than 50% stenosis based on peak systolic velocity criteria. 3. Antegrade vertebral arteries. Dictated by: Russel Carreon M.D. on 06/17/2024 at 16:38 Approved by: Russel Carreon M.D. on 06/17/2024 at 16:41
== END ==
PROVIDERS: PCP Internal Medicine; Referring Provider Student in an Organized Health Care Education/Training Program; Visit Provider Student in an Organized Health Care Education/Training Program
DX: I65.23 Occlusion and stenosis of bilateral carotid arteries (principal); I70.8 Atherosclerosis of other arteries; R53.1 Weakness
CPT/HCPCS: 93880; 93931